=== PATIENT | female | born 1955 | race Caucasian/White ===

== ENCOUNTER 2018-11-21 10:37 | Inpatient (IN) ==
[2018-11-21] MEDS ORDERED: ONDANSETRON 4 MG/2 ML VIAL IV PRN (10:55)
[2018-11-21] MEDS ORDERED: DEXTROSE 50% 25 GM/50 ML SYRINGE IV PRN (10:55)
[2018-11-21] MEDS ORDERED: GLUCAGON 1 MG VIAL IM PRN (10:55)
[2018-11-21] MEDS ORDERED: SODIUM CHLORIDE 0.9% 1,000 ML IV PRN ×2 (11:00→14:41)
[2018-11-21] MEDS ORDERED: PNEUMOCOCCAL VACCINE (13 VALENT) 0.5 ML SYRINGE IM ONE (14:14)
[2018-11-21 14:51] LABS: Sedimentation Rate-Westergren 100 MM/HR (0-30)
[2018-11-21] MEDS: INSULIN LISPRO 100 UNIT/ML SUBCUT SCH ×3 (15:47→20:29)
[2018-11-21 16:35] LABS: Hepatitis A Ab IgM Quant 0.13 Index; Hepatitis A Ab IgM Result Negative (Negative); Hepatitis B Core IgM Quant 0.11 Index; Hepatitis B Core IgM Result Negative (Negative); Hepatitis B Surface Ag Quant < 0.10 Index; Hepatitis B Surface Ag Result Negative (Negative); Hepatitis C Virus Ab Quant 0.04 Index; Hepatitis C Virus Ab Result Negative (Negative)
[2018-11-21] MEDS ORDERED: IRON SUCROSE 200 MG in SODIUM CHLORIDE 0.9% 100 ML IV ONE (18:00)
[2018-11-21] MEDS: DOCUSATE SODIUM 100 MG CAPSULE PO SCH (20:29)
[2018-11-22] MEDS: ACETAMINOPHEN 325 MG TABLET PO PRN ×2 (00:50→10:53)
[2018-11-22 06:33] LABS: Basophils % 0.4 % (0.0-0.8); Eosinophils # 0.1 10*3/uL (0.0-0.87); Eosinophils % 3.5 % (0.00-10.9); Hematocrit 22.9 VOL% (35.7-47.0); Hemoglobin 6.9 GM/DL (12.0-16.0); Immature Granulocytes % 0.4 %; Immature Granulocytes Absolute 0.01 #; Lymphocytes % 42.1 % (21.3-54.2); Mean Corpuscular HGB Conc 30.1 GM/DL (32-36); Mean Corpuscular Hemoglobin 25 PG (27-34); Mean Corpuscular Volume 83.6 FL (87-102); Mean Platelet Volume 13.2 FL (9.6-12.0); Monocytes # 0.2 10*3/uL (0.11-0.8); Monocytes % 9.6 % (1.7-12.7); Red Blood Count 2.74 MC/CUMM (3.8-5.5); Red Cell Distribution Width 15.3 % (9.3-17.3); White Blood Count 2.3 T/CUMM (4-12)
[2018-11-22 06:36] LABS: INR 1.1; PT Patient Result 12.1 SECS
[2018-11-22 06:39] LABS: Platelet Count 38 T/CUMM (130-400)
[2018-11-22 07:01] LABS: Eosinophils 2 % (0-10); Hypochromasia 1+; Lymphocytes 39 % (20-55); Platelet Estimate Decreased; Segmented Neutrophils 47 % (50-85); Total Cells Counted 100
[2018-11-22 07:02] LABS: Albumin 2.8 G/DL (3.4-5.0); Bilirubin,Total 0.6 MG/DL (0.2-1.0); Calcium 9.7 MG/DL (8.5-10.1); Ovalocytes Slight; Potassium 4.2 MMOL/L (3.5-5.1); Total Protein 6.7 G/DL (6.4-8.3)
[2018-11-22] MEDS ORDERED: SODIUM CHLORIDE 0.9% 1,000 ML IV PRN (07:48)
[2018-11-22 08:16] LABS: Basophils % 0.4 % (0.0-0.8); Eosinophils # 0.1 10*3/uL (0.0-0.87); Eosinophils % 2.9 % (0.00-10.9); Hematocrit 26.1 VOL% (35.7-47.0); Hemoglobin 7.8 GM/DL (12.0-16.0); Immature Granulocytes % 0.4 %; Immature Granulocytes Absolute 0.01 #; Lymphocytes % 41.6 % (21.3-54.2); Mean Corpuscular HGB Conc 29.9 GM/DL (32-36); Mean Corpuscular Hemoglobin 25 PG (27-34); Mean Corpuscular Volume 84.5 FL (87-102); Mean Platelet Volume 12.5 FL (9.6-12.0); Monocytes # 0.2 10*3/uL (0.11-0.8); Monocytes % 7.6 % (1.7-12.7); Neutrophils # 1.1 10*3/uL (1.4-7.4); Neutrophils % 47.1 % (38.7-73.9); Red Blood Count 3.09 MC/CUMM (3.8-5.5); Red Cell Distribution Width 15.1 % (9.3-17.3); White Blood Count 2.4 T/CUMM (4-12)
[2018-11-22 08:20] LABS: Platelet Count 39 T/CUMM (130-400)
[2018-11-22 08:32] LABS: Hypochromasia 1+; Ovalocytes Slight; Platelet Estimate Decreased
[2018-11-22] MEDS: PANTOPRAZOLE 40 MG TABLET PO SCH (08:39)
[2018-11-22] MEDS: DOCUSATE SODIUM 100 MG CAPSULE PO SCH ×2 (08:40→22:16)
[2018-11-22] MEDS: INSULIN LISPRO 100 UNIT/ML SUBCUT SCH ×4 (08:42→22:25)
[2018-11-22] MEDS ORDERED: ETOMIDATE 20 MG/10 ML VIAL IV ONE (09:00)
[2018-11-22] MEDS ORDERED: ONDANSETRON 4 MG/2 ML VIAL ONE (09:00)
[2018-11-22] MEDS ORDERED: PROPOFOL 200 MG/20 ML VIAL IV ONE (09:00)
[2018-11-22] MEDS ORDERED: LIDOCAINE 100 MG/5 ML SYRINGE ONE (09:00)
[2018-11-22] MEDS ORDERED: LACTATED RINGERS 500 ML IV ONE (14:29)
[2018-11-22 20:50] LABS: Hematocrit 28.7 VOL% (35.7-47.0); Hemoglobin 8.8 GM/DL (12.0-16.0); Platelet Count 46 T/CUMM (130-400)
[2018-11-22] MEDS: DULoxetine 30 MG CAPSULE PO SCH (22:16)
[2018-11-23] MEDS: INSULIN LISPRO 100 UNIT/ML SUBCUT SCH ×4 (09:11→20:59)
[2018-11-23] MEDS: TORSEMIDE 20 MG TABLET PO SCH (09:59)
[2018-11-23] MEDS: PANTOPRAZOLE 40 MG TABLET PO SCH (09:59)
[2018-11-23] MEDS: LISINOPRIL 10 MG TABLET PO SCH (09:59)
[2018-11-23] MEDS: DOCUSATE SODIUM 100 MG CAPSULE PO SCH ×2 (09:59→20:59)
[2018-11-23] MEDS: buPROPion 100 MG TABLET PO SCH (10:00)
[2018-11-23] MEDS: DILTIAZEM CD 180 MG CAPSULE PO SCH (10:01)
[2018-11-23] MEDS: DULoxetine 30 MG CAPSULE PO SCH (20:59)
[2018-11-24 05:10] LABS: Basophils % 0.4 % (0.0-0.8); Eosinophils # 0.1 10*3/uL (0.0-0.87); Eosinophils % 3.4 % (0.00-10.9); Hematocrit 28.4 VOL% (35.7-47.0); Hemoglobin 8.7 GM/DL (12.0-16.0); Immature Granulocytes % 0.8 %; Immature Granulocytes Absolute 0.02 #; Lymphocytes % 36.5 % (21.3-54.2); Mean Corpuscular HGB Conc 30.6 GM/DL (32-36); Mean Corpuscular Hemoglobin 26 PG (27-34); Mean Corpuscular Volume 84.3 FL (87-102); Mean Platelet Volume 11.8 FL (9.6-12.0); Monocytes # 0.3 10*3/uL (0.11-0.8); Monocytes % 9.8 % (1.7-12.7); Neutrophils # 1.3 10*3/uL (1.4-7.4); Neutrophils % 49.1 % (38.7-73.9); Platelet Count 41 T/CUMM (130-400); Red Blood Count 3.37 MC/CUMM (3.8-5.5); Red Cell Distribution Width 15.5 % (9.3-17.3); White Blood Count 2.7 T/CUMM (4-12)
[2018-11-24 06:23] LABS: Anisocytosis 1+; Microcytosis Slight; Platelet Estimate Decreased
[2018-11-24] MEDS: INSULIN LISPRO 100 UNIT/ML SUBCUT SCH ×4 (09:37→22:21)
[2018-11-24] MEDS: DILTIAZEM CD 180 MG CAPSULE PO SCH (09:41)
[2018-11-24] MEDS: TORSEMIDE 20 MG TABLET PO SCH (09:41)
[2018-11-24] MEDS: PANTOPRAZOLE 40 MG TABLET PO SCH (09:41)
[2018-11-24] MEDS: DOCUSATE SODIUM 100 MG CAPSULE PO SCH ×2 (09:41→20:40)
[2018-11-24] MEDS: buPROPion 100 MG TABLET PO SCH (09:41)
[2018-11-24] MEDS: LISINOPRIL 10 MG TABLET PO SCH (09:41)
[2018-11-24] MEDS ORDERED: POLYETHYLENE GLYCOL POWDER 255 GM BOTTLE PO ONE (18:00)
[2018-11-24] MEDS: DULoxetine 30 MG CAPSULE PO SCH (20:40)
[2018-11-25] MEDS ORDERED: MAGNESIUM CITRATE 300 ML BOTTLE PO ONE (06:00)
[2018-11-25] MEDS ORDERED: POLYETHYLENE GLYCOL POWDER 255 GM BOTTLE PO ONE (08:53)
[2018-11-25] MEDS: TORSEMIDE 20 MG TABLET PO SCH (09:00)
[2018-11-25] MEDS: buPROPion 100 MG TABLET PO SCH (09:00)
[2018-11-25] MEDS: INSULIN LISPRO 100 UNIT/ML SUBCUT SCH ×4 (09:00→20:49)
[2018-11-25] MEDS: PANTOPRAZOLE 40 MG TABLET PO SCH (09:01)
[2018-11-25] MEDS: DILTIAZEM CD 180 MG CAPSULE PO SCH (09:01)
[2018-11-25] MEDS: DOCUSATE SODIUM 100 MG CAPSULE PO SCH ×2 (09:01→20:11)
[2018-11-25] MEDS: LISINOPRIL 10 MG TABLET PO SCH (09:01)
[2018-11-25 09:50] LABS: Basophils % 0.8 % (0.0-0.8); Eosinophils # 0.2 10*3/uL (0.0-0.87); Eosinophils % 4.1 % (0.00-10.9); Hematocrit 31.4 VOL% (35.7-47.0); Hemoglobin 9.6 GM/DL (12.0-16.0); Immature Granulocytes % 0.5 %; Immature Granulocytes Absolute 0.02 #; Lymphocytes % 27.6 % (21.3-54.2); Mean Corpuscular HGB Conc 30.6 GM/DL (32-36); Mean Corpuscular Hemoglobin 26 PG (27-34); Mean Corpuscular Volume 84.4 FL (87-102); Mean Platelet Volume 11.3 FL (9.6-12.0); Monocytes # 0.4 10*3/uL (0.11-0.8); Monocytes % 10.1 % (1.7-12.7); Neutrophils # 2.1 10*3/uL (1.4-7.4); Neutrophils % 56.9 % (38.7-73.9); Red Blood Count 3.72 MC/CUMM (3.8-5.5); Red Cell Distribution Width 15.7 % (9.3-17.3); White Blood Count 3.7 T/CUMM (4-12)
[2018-11-25 10:03] LABS: Platelet Count 43 T/CUMM (130-400)
[2018-11-25 10:06] LABS: Calcium 10.7 MG/DL (8.5-10.1); Hypochromasia 1+; Microcytosis Slight; Osmolality,Calculated 282.7 MOS/KG (273-304); Ovalocytes Slight; Platelet Estimate Decreased; Potassium 4.3 MMOL/L (3.5-5.1)
[2018-11-25] MEDS: DULoxetine 30 MG CAPSULE PO SCH (20:10)
[2018-11-25] MEDS: ACETAMINOPHEN 325 MG TABLET PO PRN (23:35)
[2018-11-26 04:35] LABS: Basophils % 0.4 % (0.0-0.8); Eosinophils # 0.1 10*3/uL (0.0-0.87); Eosinophils % 2.9 % (0.00-10.9); Hematocrit 29.7 VOL% (35.7-47.0); Hemoglobin 9.3 GM/DL (12.0-16.0); Immature Granulocytes % 0.4 %; Immature Granulocytes Absolute 0.01 #; Lymphocytes # 1.2 10*3/uL (1.4-4.0); Lymphocytes % 41.7 % (21.3-54.2); Mean Corpuscular HGB Conc 31.3 GM/DL (32-36); Mean Corpuscular Hemoglobin 26 PG (27-34); Mean Corpuscular Volume 82.5 FL (87-102); Mean Platelet Volume 12.6 FL (9.6-12.0); Monocytes # 0.3 10*3/uL (0.11-0.8); Monocytes % 9.1 % (1.7-12.7); Neutrophils # 1.3 10*3/uL (1.4-7.4); Neutrophils % 45.5 % (38.7-73.9); Platelet Count 45 T/CUMM (130-400); Red Cell Distribution Width 15.7 % (9.3-17.3); White Blood Count 2.8 T/CUMM (4-12)
[2018-11-26 04:55] LABS: Hypochromasia 1+; Microcytosis Slight; Ovalocytes Slight; Platelet Estimate Decreased
[2018-11-26 05:02] LABS: Calcium 10.1 MG/DL (8.5-10.1); Osmolality,Calculated 285.4 MOS/KG (273-304); Potassium 3.8 MMOL/L (3.5-5.1)
[2018-11-26] MEDS ORDERED: PROPOFOL 200 MG/20 ML VIAL IV ONE (09:00)
[2018-11-26] MEDS ORDERED: LIDOCAINE 2% 5 ML VIAL ONE (09:00)
[2018-11-26] MEDS: INSULIN LISPRO 100 UNIT/ML SUBCUT SCH ×4 (09:02→21:23)
[2018-11-26] MEDS: DOCUSATE SODIUM 100 MG CAPSULE PO SCH ×2 (14:44→20:02)
[2018-11-26] MEDS: TORSEMIDE 20 MG TABLET PO SCH (15:25)
[2018-11-26] MEDS: PANTOPRAZOLE 40 MG TABLET PO SCH (15:25)
[2018-11-26] MEDS: buPROPion 100 MG TABLET PO SCH (15:25)
[2018-11-26] MEDS: LISINOPRIL 10 MG TABLET PO SCH (15:25)
[2018-11-26] MEDS: DILTIAZEM CD 180 MG CAPSULE PO SCH (15:25)
[2018-11-26] MEDS: DULoxetine 30 MG CAPSULE PO SCH (20:02)
[2018-11-27 04:55] LABS: Basophils % 0.7 % (0.0-0.8); Eosinophils # 0.1 10*3/uL (0.0-0.87); Hematocrit 31.8 VOL% (35.7-47.0); Hemoglobin 9.7 GM/DL (12.0-16.0); Immature Granulocytes % 0.2 %; Immature Granulocytes Absolute 0.01 #; Lymphocytes # 1.1 10*3/uL (1.4-4.0); Lymphocytes % 27.4 % (21.3-54.2); Mean Corpuscular HGB Conc 30.5 GM/DL (32-36); Mean Corpuscular Hemoglobin 26 PG (27-34); Mean Corpuscular Volume 84.6 FL (87-102); Monocytes # 0.3 10*3/uL (0.11-0.8); Monocytes % 7.6 % (1.7-12.7); Neutrophils # 2.5 10*3/uL (1.4-7.4); Neutrophils % 62.1 % (38.7-73.9); Platelet Count 49 T/CUMM (130-400); Red Blood Count 3.76 MC/CUMM (3.8-5.5); Red Cell Distribution Width 15.9 % (9.3-17.3); White Blood Count 4.1 T/CUMM (4-12)
[2018-11-27 05:13] LABS: Calcium 10.4 MG/DL (8.5-10.1); Osmolality,Calculated 286.4 MOS/KG (273-304); Potassium 4.1 MMOL/L (3.5-5.1)
[2018-11-27 05:17] LABS: Hypochromasia 2+; Microcytosis Slight; Ovalocytes Slight; Platelet Estimate Decreased
[2018-11-27] MEDS: INSULIN LISPRO 100 UNIT/ML SUBCUT SCH ×4 (11:13→21:33)
[2018-11-27] MEDS: DOCUSATE SODIUM 100 MG CAPSULE PO SCH ×2 (11:13→21:00)
[2018-11-27] MEDS: buPROPion 100 MG TABLET PO SCH (11:25)
[2018-11-27] MEDS: LISINOPRIL 10 MG TABLET PO SCH (11:25)
[2018-11-27] MEDS: DILTIAZEM CD 180 MG CAPSULE PO SCH (11:26)
[2018-11-27] MEDS: PANTOPRAZOLE 40 MG TABLET PO SCH (11:26)
[2018-11-27] MEDS: TORSEMIDE 20 MG TABLET PO SCH (11:26)
[2018-11-27] MEDS ORDERED: IRON SUCROSE 200 MG in SODIUM CHLORIDE 0.9% 100 ML IV ONE (13:00)
[2018-11-27] MEDS ORDERED: GLUCAGON 1 MG VIAL IM PRN (15:53)
[2018-11-27] MEDS ORDERED: DEXTROSE 50% 25 GM/50 ML VIAL IV PRN (15:53)
[2018-11-27] MEDS: DULoxetine 30 MG CAPSULE PO SCH (20:59)
[2018-11-28 05:21] LABS: Calcium 9.6 MG/DL (8.5-10.1); Osmolality,Calculated 283.7 MOS/KG (273-304); Potassium 3.9 MMOL/L (3.5-5.1)
[2018-11-28 05:28] LABS: Basophils % 0.6 % (0.0-0.8); Eosinophils # 0.1 10*3/uL (0.0-0.87); Eosinophils % 2.9 % (0.00-10.9); Hematocrit 30.4 VOL% (35.7-47.0); Hemoglobin 9.5 GM/DL (12.0-16.0); Immature Granulocytes % 0.3 %; Immature Granulocytes Absolute 0.01 #; Lymphocytes # 1.2 10*3/uL (1.4-4.0); Lymphocytes % 36.3 % (21.3-54.2); Mean Corpuscular HGB Conc 31.3 GM/DL (32-36); Mean Corpuscular Hemoglobin 26 PG (27-34); Mean Corpuscular Volume 83.3 FL (87-102); Monocytes # 0.3 10*3/uL (0.11-0.8); Monocytes % 7.4 % (1.7-12.7); Neutrophils # 1.8 10*3/uL (1.4-7.4); Neutrophils % 52.5 % (38.7-73.9); Platelet Count 41 T/CUMM (130-400); Red Blood Count 3.65 MC/CUMM (3.8-5.5); Red Cell Distribution Width 16.1 % (9.3-17.3); White Blood Count 3.4 T/CUMM (4-12)
[2018-11-28 06:48] LABS: Eosinophils 2 % (0-10); Lymphocytes 30 % (20-55); Segmented Neutrophils 62 % (50-85); Total Cells Counted 100
[2018-11-28 06:49] LABS: Anisocytosis Slight; Microcytosis Slight
[2018-11-28 06:50] LABS: Hypochromasia Slight
[2018-11-28 06:51] LABS: Ovalocytes Slight; Platelet Estimate Decreased
[2018-11-28] MEDS ORDERED: SODIUM CHLORIDE 0.9% 1,000 ML IV SCH (08:00)
[2018-11-28] MEDS: INSULIN LISPRO 100 UNIT/ML SUBCUT SCH ×2 (08:03→12:49)
[2018-11-28] MEDS: PANTOPRAZOLE 40 MG TABLET PO SCH (09:00)
[2018-11-28] MEDS: DILTIAZEM CD 180 MG CAPSULE PO SCH (09:00)
[2018-11-28] MEDS: buPROPion 100 MG TABLET PO SCH (09:00)
[2018-11-28] MEDS: DOCUSATE SODIUM 100 MG CAPSULE PO SCH (09:00)
[2018-11-28 11:35] VITALS: BP 121/58
== END 2018-11-28 14:15 | disposition home or self-care (01) | DRG 812 ==
LOC: N.4E 11:04
PROVIDERS: ADMIT Internal Medicine; ATTEND Internal Medicine

== ENCOUNTER 2021-02-25 11:19 | Inpatient (IN) ==
[2021-02-25] MEDS ORDERED: SODIUM CHLORIDE 0.9% 1,000 ML IV STA (11:37)
[2021-02-25 12:32] LABS: Bilirubin,Urine Negative (Negative); Blood, Urine Negative (Negative); Glucose,Urine (UA) Negative (Negative); Ketones,Urine Negative (Negative); Mucus,Urine Occasional /LPF (Occasional); Nitrite,Urine Negative (Negative); Protein,Urine Negative; RBC,Urine 1 /HPF (0-4); Squamous Epithelial Cell,Urine Occasional /HPF (0-10); Urine Appearance CLEAR (Clear); Urine Color Yellow (Yellow); Urine Specific Gravity 1.008 (1.001-1.035); Urine Urobilinogen < 2.0 EU/DL (0.2-1.0)
[2021-02-25 12:40] LABS: Eosinophils % 0.3 % (0.00-10.9); Immature Granulocytes % 0.7 %; Immature Granulocytes Absolute 0.02 #; Lymphocytes # 0.5 10*3/uL (1.4-4.0); Mean Corpuscular HGB Conc 31.1 GM/DL (32-36); Mean Corpuscular Volume 90.2 FL (87-102); Red Blood Count 1.32 MC/CUMM (3.8-5.5); Red Cell Distribution Width 18.1 % (9.3-17.3)
[2021-02-25 12:46] LABS: Hemoglobin 3.7 GM/DL (12.0-16.0)
[2021-02-25 12:47] LABS: Hematocrit 11.9 VOL% (35.7-47.0); Platelet Count 7 T/CUMM (130-400)
[2021-02-25] MEDS ORDERED: ALBUTEROL 2.5 MG/3 ML NEB RESP TX PRN (13:05)
[2021-02-25] MEDS ORDERED: ONDANSETRON 4 MG/2 ML VIAL IV PRN (13:05)
[2021-02-25 13:08] LABS: Alanine Aminotransferase 24 U/L (13-56); Albumin 2.3 G/DL (3.4-5.0); Alkaline Phosphatase 63 U/L (45-117); Aspartate Amino Transferase 27 U/L (0-37); Blood Urea Nitrogen 54 MG/DL (7-18); Calcium 9.2 MG/DL (8.5-10.1); Carbon Dioxide 19 MMOL/L (21-32); Estimated Glom Filtration Rate 43 ML/MIN; Glucose 145 MG/DL (74-106); Osmolality,Calculated 298.3 MOS/KG (273-304); Potassium 4.6 MMOL/L (3.5-5.1); Sodium 141 MMOL/L (136-145); Total Protein 5.9 G/DL (6.4-8.2)
[2021-02-25 13:36] LABS: Hypochromasia 2+; Lymphocytes 11 % (20-55); Platelet Estimate Decreased; Segmented Neutrophils 83 % (50-85); Total Cells Counted 100
[2021-02-25 13:37] LABS: Ovalocytes Few
[2021-02-25 13:39] LABS: INR 1.2; PT Patient Result 13.4 SECS (10.5-12.0)
[2021-02-25] MEDS ORDERED: SODIUM CHLORIDE 0.9% 1,000 ML IV PRN (13:44)
[2021-02-25] MEDS: LACTATED RINGERS 1,000 ML IV SCH (13:52)
[2021-02-25] MEDS: FAMOTIDINE 20 MG/2 ML VIAL IV SCH (13:52)
[2021-02-25 14:45] LABS: Ferritin 162.7 ng/ml (8-252)
[2021-02-25 15:19] LABS: Immature Granulocytes % 0.6 %; Immature Granulocytes Absolute 0.01 #; Lymphocytes # 0.5 10*3/uL (1.4-4.0); Lymphocytes % 27.5 % (21.3-54.2); Mean Corpuscular HGB Conc 30.6 GM/DL (32-36); Mean Corpuscular Volume 91.5 FL (87-102); Mean Platelet Volume 11.9 FL (9.6-12.0); Neutrophils % 62.9 % (38.7-73.9); Red Blood Count 1.18 MC/CUMM (3.8-5.5); Red Cell Distribution Width 18.4 % (9.3-17.3); White Blood Count 1.7 T/CUMM (4-12)
[2021-02-25 15:25] LABS: Hematocrit 10.8 VOL% (35.7-47.0); Hemoglobin 3.3 GM/DL (12.0-16.0)
[2021-02-25 15:26] LABS: Platelet Count 5 T/CUMM (130-400)
[2021-02-25 17:46] LABS: Sedimentation Rate-Westergren 80 MM/HR (0-30)
[2021-02-25] MEDS ORDERED: cefTRIAXone 1,000 MG in SODIUM CHLORIDE 0.9% 100 ML IV SCH (19:00)
[2021-02-25 20:57] LABS: Folate 6.68 NG/ML (5.38-24.0)
[2021-02-25] MEDS: CALCIUM (CARBONATE)/VITAMIN D 600 MG-400 UNIT TABLET PO SCH (21:29)
[2021-02-25] MEDS: LATANOPROST 0.005% OPH SOLN 2.5 ML BOTTLE BOTH EYES SCH (21:32)
[2021-02-26 01:20] LABS: Hematocrit 21.4 VOL% (35.7-47.0); Hemoglobin 6.9 GM/DL (12.0-16.0)
[2021-02-26] MEDS: FAMOTIDINE 20 MG/2 ML VIAL IV SCH ×2 (02:26→13:03)
[2021-02-26 04:41] LABS: Eosinophils % 1.1 % (0.00-10.9); Hematocrit 21.6 VOL% (35.7-47.0); Hemoglobin 7.1 GM/DL (12.0-16.0); Immature Granulocytes % 0.7 %; Immature Granulocytes Absolute 0.02 #; Lymphocytes # 0.4 10*3/uL (1.4-4.0); Lymphocytes % 15.9 % (21.3-54.2); Mean Corpuscular HGB Conc 32.9 GM/DL (32-36); Mean Corpuscular Volume 90.8 FL (87-102); Monocytes % 8.1 % (1.7-12.7); Neutrophils % 74.2 % (38.7-73.9); Red Blood Count 2.38 MC/CUMM (3.8-5.5); Red Cell Distribution Width 16.2 % (9.3-17.3); White Blood Count 2.7 T/CUMM (4-12)
[2021-02-26 04:45] LABS: Platelet Count 2 T/CUMM (130-400)
[2021-02-26 04:54] LABS: Albumin 2.4 G/DL (3.4-5.0); Bilirubin,Total 1.3 MG/DL (0.2-1.0); Calcium 9.3 MG/DL (8.5-10.1); Osmolality,Calculated 297.1 MOS/KG (273-304); Potassium 4.1 MMOL/L (3.5-5.1); Total Protein 5.8 G/DL (6.4-8.2)
[2021-02-26 04:57] LABS: INR 1.3
[2021-02-26 06:24] LABS: Anisocytosis 2+; Platelet Estimate Decreased
[2021-02-26 06:25] LABS: Macrocytosis 1+
[2021-02-26] MEDS: LACTATED RINGERS 1,000 ML IV SCH ×4 (06:31→21:13)
[2021-02-26] MEDS: oxyCODONE IR 5 MG TABLET PO SCH (08:44)
[2021-02-26] MEDS: buPROPion 100 MG TABLET PO SCH (08:44)
[2021-02-26] MEDS: CALCIUM (CARBONATE)/VITAMIN D 600 MG-400 UNIT TABLET PO SCH ×2 (08:44→21:14)
[2021-02-26 10:18] LABS: Band Neutrophils 10 % (0-10); Lymphocytes 24 % (20-55); Platelet Estimate Decreased; Segmented Neutrophils 58 % (50-85); Total Cells Counted 100
[2021-02-26 10:19] LABS: Anisocytosis 1+; Hypochromasia 1+
[2021-02-26 10:39] LABS: INR 1.2; PT Patient Result 12.8 SECS (10.5-12.0); Partial Thromboplastin Time 28.7 SECS (23.9-33.8)
[2021-02-26] MEDS ORDERED: IMMUNE GLOBULIN 10% 40 GM in PREMIX 1 EACH IV ONE (11:28)
[2021-02-26] MEDS: methylPREDNISolone SOD SUC INJ 500 MG in SODIUM CHLORIDE 0.9% 100 ML IV SCH (13:03)
[2021-02-26] MEDS: LATANOPROST 0.005% OPH SOLN 2.5 ML BOTTLE BOTH EYES SCH (21:14)
[2021-02-27] MEDS: FAMOTIDINE 20 MG/2 ML VIAL IV SCH ×2 (01:38→13:09)
[2021-02-27 06:22] LABS: Hematocrit 19.5 VOL% (35.7-47.0); Hemoglobin 6.5 GM/DL (12.0-16.0); Immature Granulocytes Absolute 0.02 #; Lymphocytes # 0.2 10*3/uL (1.4-4.0); Lymphocytes % 16.2 % (21.3-54.2); Mean Corpuscular HGB Conc 33.3 GM/DL (32-36); Mean Corpuscular Volume 89.4 FL (87-102); Mean Platelet Volume 12.4 FL (9.6-12.0); Neutrophils % 78.8 % (38.7-73.9); Red Blood Count 2.18 MC/CUMM (3.8-5.5); Red Cell Distribution Width 16.3 % (9.3-17.3)
[2021-02-27 06:23] LABS: Platelet Count 13 T/CUMM (130-400)
[2021-02-27 06:32] LABS: INR 1.2; PT Patient Result 13.6 SECS (10.5-12.0); Partial Thromboplastin Time 30.1 SECS (23.9-33.8)
[2021-02-27 06:39] LABS: Albumin 2.1 G/DL (3.4-5.0); Bilirubin,Total 0.8 MG/DL (0.2-1.0); Calcium 9.3 MG/DL (8.5-10.1); Osmolality,Calculated 292.4 MOS/KG (273-304); Potassium 4.1 MMOL/L (3.5-5.1); Total Protein 6.2 G/DL (6.4-8.2)
[2021-02-27 06:42] LABS: Band Neutrophils 1 % (0-10); Hypochromasia 1+; Lymphocytes 15 % (20-55); Microcytosis 1+; Platelet Estimate Decreased; Segmented Neutrophils 80 % (50-85); Total Cells Counted 100
[2021-02-27] MEDS: LACTATED RINGERS 1,000 ML IV SCH ×2 (06:45→16:14)
[2021-02-27] MEDS: CALCIUM (CARBONATE)/VITAMIN D 600 MG-400 UNIT TABLET PO SCH ×2 (08:00→20:56)
[2021-02-27] MEDS: buPROPion 100 MG TABLET PO SCH (08:00)
[2021-02-27] MEDS: oxyCODONE IR 5 MG TABLET PO SCH (08:01)
[2021-02-27] MEDS ORDERED: PNEUMOCOCCAL VACCINE (13 VALENT) 0.5 ML SYRINGE IM ONE (09:00)
[2021-02-27] MEDS ORDERED: IMMUNE GLOBULIN 10% 40 GM in PREMIX 1 EACH IV ONE (09:12)
[2021-02-27] MEDS: methylPREDNISolone SOD SUC INJ 500 MG in SODIUM CHLORIDE 0.9% 100 ML IV SCH (13:09)
[2021-02-27 16:16] LABS: Hematocrit 25.6 VOL% (35.7-47.0); Immature Granulocytes % 1.1 %; Immature Granulocytes Absolute 0.02 #; Lymphocytes # 0.2 10*3/uL (1.4-4.0); Lymphocytes % 9.1 % (21.3-54.2); Mean Corpuscular Volume 90.5 FL (87-102); Mean Platelet Volume 12.2 FL (9.6-12.0); Neutrophils % 85.8 % (38.7-73.9); Red Blood Count 2.83 MC/CUMM (3.8-5.5); Red Cell Distribution Width 15.7 % (9.3-17.3); White Blood Count 1.8 T/CUMM (4-12)
[2021-02-27 16:25] LABS: Hemoglobin 8.2 GM/DL (12.0-16.0)
[2021-02-27 16:26] LABS: Platelet Count 21 T/CUMM (130-400)
[2021-02-27 16:44] LABS: Lymphocytes 7 % (20-55); Segmented Neutrophils 93 % (50-85); Total Cells Counted 100
[2021-02-27 16:46] LABS: Anisocytosis Slight; Macrocytosis Slight
[2021-02-27 16:47] LABS: Platelet Estimate Adequate
[2021-02-27] MEDS: LATANOPROST 0.005% OPH SOLN 2.5 ML BOTTLE BOTH EYES SCH (20:56)
[2021-02-28] MEDS: LACTATED RINGERS 1,000 ML IV SCH ×3 (01:25→23:33)
[2021-02-28] MEDS: FAMOTIDINE 20 MG/2 ML VIAL IV SCH (01:25)
[2021-02-28 05:01] LABS: Hematocrit 24.9 VOL% (35.7-47.0); Hemoglobin 8.3 GM/DL (12.0-16.0); Immature Granulocytes Absolute 0.02 #; Lymphocytes # 0.2 10*3/uL (1.4-4.0); Lymphocytes % 8.1 % (21.3-54.2); Mean Corpuscular HGB Conc 33.3 GM/DL (32-36); Mean Corpuscular Volume 89.2 FL (87-102); Mean Platelet Volume 12.4 FL (9.6-12.0); Monocytes % 3.6 % (1.7-12.7); Neutrophils % 87.3 % (38.7-73.9); Red Blood Count 2.79 MC/CUMM (3.8-5.5); Red Cell Distribution Width 15.6 % (9.3-17.3)
[2021-02-28 05:12] LABS: Platelet Count 23 T/CUMM (130-400)
[2021-02-28 05:35] LABS: Hypochromasia 1+; Lymphocytes 4 % (20-55); Microcytosis 1+; Platelet Estimate Decreased; Segmented Neutrophils 94 % (50-85); Total Cells Counted 100
[2021-02-28 05:36] LABS: Albumin 2.4 G/DL (3.4-5.0); Bilirubin,Total 0.8 MG/DL (0.2-1.0); Calcium 10.4 MG/DL (8.5-10.1); Osmolality,Calculated 294.4 MOS/KG (273-304); Potassium 3.8 MMOL/L (3.5-5.1); Total Protein 7.5 G/DL (6.4-8.2)
[2021-02-28] MEDS ORDERED: LACTULOSE 20 GM/30 ML UDCUP PO SCH (09:00)
[2021-02-28] MEDS: CALCIUM (CARBONATE)/VITAMIN D 600 MG-400 UNIT TABLET PO SCH ×2 (09:22→22:05)
[2021-02-28] MEDS: PANTOPRAZOLE 40 MG VIAL IV SCH ×2 (09:22→22:02)
[2021-02-28] MEDS: LACTULOSE 20 GM/30 ML UDCUP PO SCH ×2 (09:22→22:05)
[2021-02-28] MEDS: buPROPion 100 MG TABLET PO SCH (09:22)
[2021-02-28] MEDS: oxyCODONE IR 5 MG TABLET PO SCH (09:22)
[2021-02-28] MEDS: methylPREDNISolone SOD SUC INJ 500 MG in SODIUM CHLORIDE 0.9% 100 ML IV SCH (13:50)
[2021-02-28] MEDS ORDERED: DEXTROSE 50% 25 GM/50 ML VIAL IV PRN (17:58)
[2021-02-28] MEDS ORDERED: GLUCAGON 1 MG VIAL IM PRN (17:58)
[2021-02-28] MEDS ORDERED: SODIUM CHLORIDE 0.9% 1,000 ML IV PRN ×2 (17:59→23:19)
[2021-02-28] MEDS ORDERED: IMMUNE GLOBULIN 10% 40 GM in PREMIX 1 EACH IV ONE (18:01)
[2021-02-28] MEDS: INSULIN LISPRO 100 UNIT/ML SUBCUT SCH (18:29)
[2021-02-28] MEDS: LATANOPROST 0.005% OPH SOLN 2.5 ML BOTTLE BOTH EYES SCH (22:35)
[2021-02-28 23:16] LABS: Basophils % 0.3 % (0.0-0.8); Hematocrit 24.4 VOL% (35.7-47.0); Hemoglobin 7.9 GM/DL (12.0-16.0); Immature Granulocytes Absolute 0.09 #; Lymphocytes # 0.2 10*3/uL (1.4-4.0); Lymphocytes % 7.3 % (21.3-54.2); Mean Corpuscular HGB Conc 32.4 GM/DL (32-36); Mean Corpuscular Volume 90.7 FL (87-102); Mean Platelet Volume 12.1 FL (9.6-12.0); Monocytes % 3.7 % (1.7-12.7); Neutrophils % 85.7 % (38.7-73.9); Red Blood Count 2.69 MC/CUMM (3.8-5.5); Red Cell Distribution Width 16.2 % (9.3-17.3)
[2021-02-28 23:17] LABS: Platelet Count 37 T/CUMM (130-400)
[2021-03-01] MEDS: INSULIN LISPRO 100 UNIT/ML SUBCUT SCH ×4 (00:02→18:29)
[2021-03-01] MEDS: LACTATED RINGERS 1,000 ML IV SCH ×3 (01:33→17:51)
[2021-03-01 04:40] LABS: Hematocrit 22.6 VOL% (35.7-47.0); Hemoglobin 7.3 GM/DL (12.0-16.0); Immature Granulocytes % 1.8 %; Immature Granulocytes Absolute 0.05 #; Lymphocytes # 0.2 10*3/uL (1.4-4.0); Lymphocytes % 7.7 % (21.3-54.2); Mean Corpuscular HGB Conc 32.3 GM/DL (32-36); Mean Corpuscular Volume 91.1 FL (87-102); Mean Platelet Volume 11.8 FL (9.6-12.0); Monocytes % 4.4 % (1.7-12.7); NRBC # 0.02 10*3/uL; Neutrophils % 86.1 % (38.7-73.9); Platelet Count 43 T/CUMM (130-400); Red Blood Count 2.48 MC/CUMM (3.8-5.5); Red Cell Distribution Width 16.2 % (9.3-17.3); White Blood Count 2.7 T/CUMM (4-12)
[2021-03-01 05:01] LABS: Hypochromasia 1+; Microcytosis 1+; Ovalocytes Slight; Platelet Estimate Decreased
[2021-03-01 05:23] LABS: Calcium 11.2 MG/DL (8.5-10.1); Potassium 3.9 MMOL/L (3.5-5.1)
[2021-03-01] MEDS ORDERED: SODIUM CHLORIDE 0.9% 1,000 ML IV PRN (09:39)
[2021-03-01] MEDS: oxyCODONE IR 5 MG TABLET PO SCH (10:29)
[2021-03-01] MEDS: CALCIUM (CARBONATE)/VITAMIN D 600 MG-400 UNIT TABLET PO SCH ×2 (10:29→21:08)
[2021-03-01] MEDS: buPROPion 100 MG TABLET PO SCH (10:29)
[2021-03-01] MEDS: PANTOPRAZOLE 40 MG VIAL IV SCH ×2 (10:30→21:09)
[2021-03-01] MEDS: LACTULOSE 20 GM/30 ML UDCUP PO SCH ×2 (10:30→21:09)
[2021-03-01] MEDS: methylPREDNISolone SOD SUC INJ 500 MG in SODIUM CHLORIDE 0.9% 100 ML IV SCH (15:01)
[2021-03-01] MEDS ORDERED: FUROSEMIDE 40 MG/4 ML VIAL IV ONE (15:30)
[2021-03-01] MEDS: LATANOPROST 0.005% OPH SOLN 2.5 ML BOTTLE BOTH EYES SCH (21:22)
[2021-03-01 22:29] LABS: Hematocrit 26.3 VOL% (35.7-47.0); Hemoglobin 8.6 GM/DL (12.0-16.0); Immature Granulocytes % 4.9 %; Lymphocytes # 0.2 10*3/uL (1.4-4.0); Lymphocytes % 5.8 % (21.3-54.2); Mean Corpuscular HGB Conc 32.7 GM/DL (32-36); Mean Corpuscular Volume 90.1 FL (87-102); Mean Platelet Volume 11.7 FL (9.6-12.0); Monocytes % 4.4 % (1.7-12.7); NRBC # 0.03 10*3/uL; Neutrophils % 84.9 % (38.7-73.9); Platelet Count 55 T/CUMM (130-400); Red Blood Count 2.92 MC/CUMM (3.8-5.5); Red Cell Distribution Width 16.5 % (9.3-17.3); White Blood Count 4.1 T/CUMM (4-12)
[2021-03-01 23:32] LABS: Lymphocytes 5 % (20-55); Segmented Neutrophils 93 % (50-85); Total Cells Counted 100
[2021-03-01 23:33] LABS: Hypochromasia 1+; Platelet Estimate Decreased
[2021-03-02] MEDS: INSULIN LISPRO 100 UNIT/ML SUBCUT SCH ×5 (00:23→23:37)
[2021-03-02 04:27] LABS: Hematocrit 24.1 VOL% (35.7-47.0); Hemoglobin 7.8 GM/DL (12.0-16.0); Immature Granulocytes % 3.4 %; Lymphocytes # 0.2 10*3/uL (1.4-4.0); Lymphocytes % 8.2 % (21.3-54.2); Mean Corpuscular HGB Conc 32.4 GM/DL (32-36); Mean Corpuscular Volume 89.6 FL (87-102); Mean Platelet Volume 11.5 FL (9.6-12.0); Monocytes % 7.2 % (1.7-12.7); NRBC # 0.03 10*3/uL; Neutrophils % 81.2 % (38.7-73.9); Platelet Count 47 T/CUMM (130-400); Red Blood Count 2.69 MC/CUMM (3.8-5.5); Red Cell Distribution Width 16.5 % (9.3-17.3); White Blood Count 2.9 T/CUMM (4-12)
[2021-03-02 04:37] LABS: Calcium 11.1 MG/DL (8.5-10.1); Osmolality,Calculated 299.8 MOS/KG (273-304); Potassium 3.7 MMOL/L (3.5-5.1)
[2021-03-02 04:48] LABS: Hypochromasia 1+; Microcytosis 1+; Platelet Estimate Decreased
[2021-03-02] MEDS: LACTATED RINGERS 1,000 ML IV SCH ×2 (06:48→17:46)
[2021-03-02] MEDS: oxyCODONE IR 5 MG TABLET PO SCH (08:45)
[2021-03-02] MEDS: CALCIUM (CARBONATE)/VITAMIN D 600 MG-400 UNIT TABLET PO SCH ×2 (08:45→21:20)
[2021-03-02] MEDS: LACTULOSE 20 GM/30 ML UDCUP PO SCH ×2 (08:45→21:19)
[2021-03-02] MEDS: buPROPion 100 MG TABLET PO SCH (08:46)
[2021-03-02] MEDS: PANTOPRAZOLE 40 MG VIAL IV SCH ×2 (08:46→21:19)
[2021-03-02] MEDS ORDERED: SODIUM CHLORIDE 0.9% 1,000 ML IV PRN ×2 (09:16→11:59)
[2021-03-02] MEDS ORDERED: HEPARIN 5,000 UNIT/1 ML VIAL ONE (09:48)
[2021-03-02] MEDS: SODIUM CHLORIDE 0.9% 1,000 ML IV SCH (11:55)
[2021-03-02] MEDS: methylPREDNISolone SOD SUC 40 MG/1 ML VIAL IV SCH ×2 (12:02→17:54)
[2021-03-02] MEDS ORDERED: LIDOCAINE 2% 5 ML VIAL ONE (13:54)
[2021-03-02] MEDS ORDERED: propofoL 200 MG/20 ML VIAL IV ONE (13:54)
[2021-03-02] MEDS ORDERED: ETOMIDATE 20 MG/10 ML VIAL IV ONE (13:54)
[2021-03-02 20:53] LABS: Basophils % 0.3 % (0.0-0.8); Hematocrit 27.9 VOL% (35.7-47.0); Hemoglobin 9.1 GM/DL (12.0-16.0); Immature Granulocytes % 4.6 %; Immature Granulocytes Absolute 0.14 #; Lymphocytes # 0.2 10*3/uL (1.4-4.0); Lymphocytes % 6.2 % (21.3-54.2); Mean Corpuscular HGB Conc 32.6 GM/DL (32-36); Mean Corpuscular Volume 90.3 FL (87-102); Mean Platelet Volume 11.1 FL (9.6-12.0); Monocytes % 3.3 % (1.7-12.7); NRBC # 0.03 10*3/uL; Neutrophils % 85.6 % (38.7-73.9); Platelet Count 51 T/CUMM (130-400); Red Blood Count 3.09 MC/CUMM (3.8-5.5); Red Cell Distribution Width 16.5 % (9.3-17.3); White Blood Count 3.1 T/CUMM (4-12)
[2021-03-02] MEDS: LATANOPROST 0.005% OPH SOLN 2.5 ML BOTTLE BOTH EYES SCH (21:23)
[2021-03-02] MEDS ORDERED: LABETALOL 20 MG/4 ML SYRINGE IV ONE (23:20)
[2021-03-03] MEDS: methylPREDNISolone SOD SUC 40 MG/1 ML VIAL IV SCH ×3 (01:32→18:24)
[2021-03-03] MEDS: LACTATED RINGERS 1,000 ML IV SCH ×2 (04:07→14:45)
[2021-03-03 04:41] LABS: Hematocrit 27.9 VOL% (35.7-47.0); Hemoglobin 9.1 GM/DL (12.0-16.0); Immature Granulocytes % 5.4 %; Immature Granulocytes Absolute 0.15 #; Lymphocytes # 0.2 10*3/uL (1.4-4.0); Lymphocytes % 6.5 % (21.3-54.2); Mean Corpuscular HGB Conc 32.6 GM/DL (32-36); Mean Corpuscular Volume 90.9 FL (87-102); Mean Platelet Volume 11.5 FL (9.6-12.0); Monocytes % 2.9 % (1.7-12.7); NRBC # 0.03 10*3/uL; Neutrophils % 85.2 % (38.7-73.9); Platelet Count 51 T/CUMM (130-400); Red Blood Count 3.07 MC/CUMM (3.8-5.5); Red Cell Distribution Width 16.5 % (9.3-17.3); White Blood Count 2.8 T/CUMM (4-12)
[2021-03-03 05:00] LABS: Band Neutrophils 1 % (0-10); Lymphocytes 5 % (20-55); Platelet Estimate Decreased; Segmented Neutrophils 90 % (50-85); Total Cells Counted 100
[2021-03-03 05:01] LABS: Hypochromasia 1+; Microcytosis 1+
[2021-03-03 05:07] LABS: Calcium 11.7 MG/DL (8.5-10.1); Potassium 3.9 MMOL/L (3.5-5.1)
[2021-03-03] MEDS: INSULIN LISPRO 100 UNIT/ML SUBCUT SCH ×3 (05:39→18:24)
[2021-03-03] MEDS: PANTOPRAZOLE 40 MG VIAL IV SCH ×2 (08:58→21:52)
[2021-03-03] MEDS: LACTULOSE 20 GM/30 ML UDCUP PO SCH ×2 (08:58→21:53)
[2021-03-03] MEDS: SODIUM CHLORIDE 0.9% 1,000 ML IV SCH (09:39)
[2021-03-03] MEDS: CALCIUM (CARBONATE)/VITAMIN D 600 MG-400 UNIT TABLET PO SCH (09:53)
[2021-03-03] MEDS: LATANOPROST 0.005% OPH SOLN 2.5 ML BOTTLE BOTH EYES SCH (21:52)
[2021-03-04] MEDS: INSULIN LISPRO 100 UNIT/ML SUBCUT SCH ×4 (01:50→18:12)
[2021-03-04] MEDS: methylPREDNISolone SOD SUC 40 MG/1 ML VIAL IV SCH ×2 (01:51→09:55)
[2021-03-04 05:46] LABS: Hematocrit 27.3 VOL% (35.7-47.0); Hemoglobin 8.6 GM/DL (12.0-16.0); Immature Granulocytes % 4.4 %; Immature Granulocytes Absolute 0.11 #; Lymphocytes # 0.1 10*3/uL (1.4-4.0); Mean Corpuscular HGB Conc 31.5 GM/DL (32-36); Mean Corpuscular Volume 95.8 FL (87-102); Mean Platelet Volume 12.3 FL (9.6-12.0); Monocytes % 2.8 % (1.7-12.7); Neutrophils % 88.8 % (38.7-73.9); Platelet Count 41 T/CUMM (130-400); Red Blood Count 2.85 MC/CUMM (3.8-5.5); Red Cell Distribution Width 17.2 % (9.3-17.3); White Blood Count 2.5 T/CUMM (4-12)
[2021-03-04 06:14] LABS: Hypochromasia 1+; Lymphocytes 12 % (20-55); Platelet Estimate Decreased; Segmented Neutrophils 86 % (50-85); Total Cells Counted 100
[2021-03-04 06:49] LABS: Calcium 10.9 MG/DL (8.5-10.1); Osmolality,Calculated 299.8 MOS/KG (273-304)
[2021-03-04] MEDS: LACTATED RINGERS 1,000 ML IV SCH ×5 (08:06→19:34)
[2021-03-04] MEDS ORDERED: SODIUM CHLORIDE 0.9% 1,000 ML IV PRN (09:28)
[2021-03-04] MEDS: PANTOPRAZOLE 40 MG VIAL IV SCH ×2 (09:52→21:52)
[2021-03-04] MEDS: LACTULOSE 20 GM/30 ML UDCUP PO SCH ×2 (09:52→21:52)
[2021-03-04] MEDS: SODIUM CHLORIDE 0.9% 1,000 ML IV SCH (09:52)
[2021-03-04] MEDS: FUROSEMIDE 40 MG/4 ML VIAL IV SCH ×2 (09:58→17:34)
[2021-03-04] MEDS: LATANOPROST 0.005% OPH SOLN 2.5 ML BOTTLE BOTH EYES SCH (21:53)
[2021-03-05] MEDS: INSULIN LISPRO 100 UNIT/ML SUBCUT SCH ×4 (01:23→17:13)
[2021-03-05 04:39] LABS: Hematocrit 26.8 VOL% (35.7-47.0); Hemoglobin 8.4 GM/DL (12.0-16.0); Immature Granulocytes % 2.8 %; Immature Granulocytes Absolute 0.08 #; Lymphocytes # 0.2 10*3/uL (1.4-4.0); Lymphocytes % 8.3 % (21.3-54.2); Mean Corpuscular HGB Conc 31.3 GM/DL (32-36); Mean Corpuscular Volume 94.7 FL (87-102); Mean Platelet Volume 11.2 FL (9.6-12.0); Monocytes % 6.3 % (1.7-12.7); Neutrophils % 82.6 % (38.7-73.9); Red Blood Count 2.83 MC/CUMM (3.8-5.5); Red Cell Distribution Width 17.3 % (9.3-17.3); White Blood Count 2.9 T/CUMM (4-12)
[2021-03-05 04:42] LABS: Platelet Count 50 T/CUMM (130-400)
[2021-03-05 04:57] LABS: Albumin 2.6 G/DL (3.4-5.0); Bilirubin,Total 2.7 MG/DL (0.20-1.00); Calcium 10.6 MG/DL (8.5-10.1); Osmolality,Calculated 291.1 MOS/KG (273-304); Potassium 3.5 MMOL/L (3.5-5.1)
[2021-03-05 05:04] LABS: Anisocytosis 1+; Hypochromasia 1+; Lymphocytes 10 % (20-55); Microcytosis 1+; Nucleated Red Blood Cells 1 (0-5); Segmented Neutrophils 87 % (50-85); Total Cells Counted 100
[2021-03-05 05:05] LABS: Platelet Estimate Decreased; Tear Drop Cells Slight
[2021-03-05] MEDS: LACTATED RINGERS 1,000 ML IV SCH ×2 (05:58→11:33)
[2021-03-05] MEDS: SODIUM CHLORIDE 0.9% 1,000 ML IV SCH (08:36)
[2021-03-05] MEDS: FUROSEMIDE 40 MG/4 ML VIAL IV SCH ×2 (09:06→15:13)
[2021-03-05] MEDS: methylPREDNISolone SOD SUC 40 MG/1 ML VIAL IV SCH (10:20)
[2021-03-05] MEDS: PANTOPRAZOLE 40 MG VIAL IV SCH ×2 (10:22→21:50)
[2021-03-05] MEDS: POTASSIUM CHLORIDE RIDER 10 MEQ/100 ML PREMIX IV PRN ×3 (10:24→12:28)
[2021-03-05] MEDS: LACTULOSE 20 GM/30 ML UDCUP PO SCH ×2 (10:25→21:50)
[2021-03-05 14:59] LABS: Total Protein 7.4 G/DL (6.4-8.2)
[2021-03-05] MEDS: LATANOPROST 0.005% OPH SOLN 2.5 ML BOTTLE BOTH EYES SCH (21:51)
[2021-03-06] MEDS: INSULIN LISPRO 100 UNIT/ML SUBCUT SCH ×4 (01:12→18:46)
[2021-03-06 03:56] LABS: Hematocrit 27.8 VOL% (35.7-47.0); Hemoglobin 9.3 GM/DL (12.0-16.0); Immature Granulocytes % 1.3 %; Immature Granulocytes Absolute 0.04 #; Lymphocytes # 0.3 10*3/uL (1.4-4.0); Lymphocytes % 11.4 % (21.3-54.2); Mean Corpuscular HGB Conc 33.5 GM/DL (32-36); Mean Corpuscular Volume 90.3 FL (87-102); Mean Platelet Volume 10.7 FL (9.6-12.0); Neutrophils % 80.3 % (38.7-73.9); Red Blood Count 3.08 MC/CUMM (3.8-5.5); Red Cell Distribution Width 17.4 % (9.3-17.3)
[2021-03-06 04:00] LABS: Platelet Count 38 T/CUMM (130-400)
[2021-03-06 04:18] LABS: Albumin 2.5 G/DL (3.4-5.0); Bilirubin,Total 2.4 MG/DL (0.20-1.00); Calcium 10.2 MG/DL (8.5-10.1); Osmolality,Calculated 282.7 MOS/KG (273-304); Potassium 3.5 MMOL/L (3.5-5.1); Total Protein 6.7 G/DL (6.4-8.2)
[2021-03-06] MEDS: methylPREDNISolone SOD SUC 40 MG/1 ML VIAL IV SCH (09:30)
[2021-03-06] MEDS: LACTULOSE 20 GM/30 ML UDCUP PO SCH ×2 (09:30→21:10)
[2021-03-06] MEDS: PANTOPRAZOLE 40 MG VIAL IV SCH ×2 (09:31→21:09)
[2021-03-06] MEDS: FUROSEMIDE 40 MG/4 ML VIAL IV SCH ×2 (09:31→16:44)
[2021-03-06] MEDS ORDERED: DEXAMETHASONE 10 MG/1 ML VIAL IV ONE (12:30)
[2021-03-06] MEDS ORDERED: diphenhydrAMINE CAP 50 MG CAPSULE PO ONE (12:30)
[2021-03-06] MEDS ORDERED: IMMUNE GLOBULIN 10% 20 GM, IMMUNE GLOBULIN 10% 10 GM in PREMIX 1 EACH IV ONE (15:00)
[2021-03-06] MEDS: LATANOPROST 0.005% OPH SOLN 2.5 ML BOTTLE BOTH EYES SCH (21:11)
[2021-03-07] MEDS: INSULIN LISPRO 100 UNIT/ML SUBCUT SCH ×4 (00:52→17:58)
[2021-03-07 04:29] LABS: Hemoglobin 9.1 GM/DL (12.0-16.0); Immature Granulocytes % 0.8 %; Immature Granulocytes Absolute 0.03 #; Lymphocytes # 0.2 10*3/uL (1.4-4.0); Lymphocytes % 4.8 % (21.3-54.2); Mean Corpuscular HGB Conc 32.5 GM/DL (32-36); Mean Corpuscular Volume 91.5 FL (87-102); Mean Platelet Volume 12.3 FL (9.6-12.0); Monocytes % 4.8 % (1.7-12.7); Neutrophils % 89.6 % (38.7-73.9); Red Blood Count 3.06 MC/CUMM (3.8-5.5); Red Cell Distribution Width 16.9 % (9.3-17.3)
[2021-03-07 04:34] LABS: Platelet Count 48 T/CUMM (130-400)
[2021-03-07 04:54] LABS: Lymphocytes 5 % (20-55); Segmented Neutrophils 88 % (50-85); Total Cells Counted 100
[2021-03-07 04:55] LABS: Hypochromasia 1+; Microcytosis 1+; Platelet Estimate Decreased
[2021-03-07 05:11] LABS: Albumin 2.4 G/DL (3.4-5.0); Bilirubin,Total 2.3 MG/DL (0.20-1.00); Osmolality,Calculated 287.8 MOS/KG (273-304); Potassium 3.4 MMOL/L (3.5-5.1); Total Protein 7.2 G/DL (6.4-8.2)
[2021-03-07] MEDS ORDERED: ZOLEDRONIC ACID 4 MG/100 ML PREMIX IV ONE (08:06)
[2021-03-07 09:04] LABS: Free T4 (Free Thyroxine) 0.96 NG/DL (0.76-1.46)
[2021-03-07] MEDS: LACTULOSE 20 GM/30 ML UDCUP PO SCH ×2 (10:52→20:49)
[2021-03-07] MEDS: PANTOPRAZOLE 40 MG VIAL IV SCH ×2 (10:52→20:47)
[2021-03-07] MEDS: methylPREDNISolone SOD SUC 40 MG/1 ML VIAL IV SCH (10:53)
[2021-03-07] MEDS: LATANOPROST 0.005% OPH SOLN 2.5 ML BOTTLE BOTH EYES SCH (23:22)
[2021-03-08] MEDS: INSULIN LISPRO 100 UNIT/ML SUBCUT SCH ×4 (00:30→18:05)
[2021-03-08 05:36] LABS: Eosinophils % 0.5 % (0.00-10.9); Hematocrit 29.3 VOL% (35.7-47.0); Hemoglobin 9.7 GM/DL (12.0-16.0); Immature Granulocytes % 0.5 %; Immature Granulocytes Absolute 0.02 #; Lymphocytes # 0.5 10*3/uL (1.4-4.0); Lymphocytes % 11.6 % (21.3-54.2); Mean Corpuscular HGB Conc 33.1 GM/DL (32-36); Mean Corpuscular Volume 91.3 FL (87-102); Mean Platelet Volume 12.5 FL (9.6-12.0); Monocytes % 5.7 % (1.7-12.7); Neutrophils % 81.7 % (38.7-73.9); Red Blood Count 3.21 MC/CUMM (3.8-5.5); Red Cell Distribution Width 17.2 % (9.3-17.3); White Blood Count 3.9 T/CUMM (4-12)
[2021-03-08 05:46] LABS: Platelet Count 33 T/CUMM (130-400)
[2021-03-08 05:58] LABS: Hypochromasia 1+; Microcytosis 1+; Platelet Estimate Decreased
[2021-03-08 06:10] LABS: Albumin 2.3 G/DL (3.4-5.0); Bilirubin,Total 2.3 MG/DL (0.20-1.00); Calcium 9.6 MG/DL (8.5-10.1); Osmolality,Calculated 289.3 MOS/KG (273-304); Potassium 3.4 MMOL/L (3.5-5.1); Total Protein 6.8 G/DL (6.4-8.2)
[2021-03-08 07:22] LABS: Immunoglobulin A (Chem) 382 MG/DL (70-400); Immunoglobulin G (Chem) 2430 MG/DL (700-1600); Immunoglobulin M (Chem) 235 MG/DL (40-230); Total Protein (Chem) 7.4 G/DL (6.4-8.3)
[2021-03-08] MEDS ORDERED: IMMUNE GLOBULIN 10% 20 GM, IMMUNE GLOBULIN 10% 10 GM in PREMIX 1 EACH IV ONE (08:10)
[2021-03-08] MEDS: methylPREDNISolone SOD SUC 40 MG/1 ML VIAL IV SCH (08:52)
[2021-03-08] MEDS: PANTOPRAZOLE 40 MG VIAL IV SCH ×2 (08:54→20:09)
[2021-03-08 08:56] LABS: Albumin (SPE) 3.6 G/DL (3.2-5.3); Alpha 1 (SPE) 0.1 G/DL (0.1-0.4); Alpha 2 (SPE) 0.5 G/DL (0.4-1.0); Alpha 2 (SPE) Rel % 7.2 %; Beta (SPE) 0.5 G/DL (0.5-1.1); Beta (SPE) Rel % 7.3 %; Gamma (SPE) 2.6 G/DL (0.7-1.7); Gamma (SPE) Rel % 34.5 %
[2021-03-08] MEDS: LACTULOSE 20 GM/30 ML UDCUP PO SCH ×3 (08:57→20:09)
[2021-03-08 11:05] LABS: Immuno Free Light Chain Kappa 4.26 MG/DL (0.33-1.94); Immuno Free Light Chain Lambda 4.15 MG/DL (0.57-2.63); Immuno Free Light Chain Ratio 1.03 MG/DL (0.26-1.65)
[2021-03-08] MEDS: NYSTATIN POWDER 15 GM BOTTLE TOP SCH ×3 (11:30→20:09)
[2021-03-08 18:16] LABS: Bilirubin,Urine Negative (Negative); Blood, Urine Negative (Negative); Glucose,Urine (UA) Negative (Negative); Ketones,Urine Negative (Negative); Mucus,Urine Occasional /LPF (Occasional); Nitrite,Urine Negative (Negative); Protein,Urine Negative; RBC,Urine 1 /HPF (0-4); Urine Appearance CLEAR (Clear); Urine Color Amber (Yellow); Urine Specific Gravity 1.013 (1.001-1.035)
[2021-03-08] MEDS: LATANOPROST 0.005% OPH SOLN 2.5 ML BOTTLE BOTH EYES SCH (20:09)
[2021-03-09] MEDS: INSULIN LISPRO 100 UNIT/ML SUBCUT SCH ×3 (01:19→18:27)
[2021-03-09 06:06] LABS: Eosinophils % 0.7 % (0.00-10.9); Hemoglobin 9.3 GM/DL (12.0-16.0); Immature Granulocytes % 0.9 %; Immature Granulocytes Absolute 0.04 #; Lymphocytes # 0.5 10*3/uL (1.4-4.0); Lymphocytes % 12.3 % (21.3-54.2); Mean Corpuscular HGB Conc 32.1 GM/DL (32-36); Mean Corpuscular Volume 94.5 FL (87-102); Monocytes % 7.1 % (1.7-12.7); Red Blood Count 3.07 MC/CUMM (3.8-5.5); Red Cell Distribution Width 17.8 % (9.3-17.3); White Blood Count 4.2 T/CUMM (4-12)
[2021-03-09 06:57] LABS: Platelet Count 33 T/CUMM (130-400)
[2021-03-09 06:58] LABS: Hypochromasia 1+; Microcytosis 1+
[2021-03-09 06:59] LABS: Ovalocytes Slight; Platelet Estimate Decreased; Tear Drop Cells Slight
[2021-03-09 08:33] LABS: Albumin 2.2 G/DL (3.4-5.0); Bilirubin,Total 1.9 MG/DL (0.20-1.00); Calcium 9.2 MG/DL (8.5-10.1); Osmolality,Calculated 283.5 MOS/KG (273-304); Potassium 3.4 MMOL/L (3.5-5.1); Total Protein 7.1 G/DL (6.4-8.2)
[2021-03-09] MEDS: NYSTATIN POWDER 15 GM BOTTLE TOP SCH ×3 (09:39→21:01)
[2021-03-09] MEDS: PANTOPRAZOLE 40 MG VIAL IV SCH ×2 (09:39→21:01)
[2021-03-09] MEDS: LACTULOSE 20 GM/30 ML UDCUP PO SCH ×3 (09:39→21:00)
[2021-03-09] MEDS: methylPREDNISolone SOD SUC 40 MG/1 ML VIAL IV SCH (09:41)
[2021-03-09] MEDS: LATANOPROST 0.005% OPH SOLN 2.5 ML BOTTLE BOTH EYES SCH (21:01)
[2021-03-10] MEDS: INSULIN LISPRO 100 UNIT/ML SUBCUT SCH ×3 (01:06→11:59)
[2021-03-10 04:06] LABS: Eosinophils % 0.4 % (0.00-10.9); Hematocrit 28.2 VOL% (35.7-47.0); Hemoglobin 9.4 GM/DL (12.0-16.0); Immature Granulocytes % 0.7 %; Immature Granulocytes Absolute 0.04 #; Lymphocytes # 0.6 10*3/uL (1.4-4.0); Lymphocytes % 10.5 % (21.3-54.2); Mean Corpuscular HGB Conc 33.3 GM/DL (32-36); Mean Corpuscular Volume 92.2 FL (87-102); Monocytes % 6.9 % (1.7-12.7); Neutrophils % 81.5 % (38.7-73.9); Red Blood Count 3.06 MC/CUMM (3.8-5.5); Red Cell Distribution Width 18.3 % (9.3-17.3); White Blood Count 5.5 T/CUMM (4-12)
[2021-03-10 04:12] LABS: Platelet Count 29 T/CUMM (130-400)
[2021-03-10 04:24] LABS: Hypochromasia 1+; Microcytosis Slight; Platelet Estimate Decreased
[2021-03-10 04:38] LABS: Albumin 2.3 G/DL (3.4-5.0); Calcium 8.6 MG/DL (8.5-10.1); Osmolality,Calculated 287.4 MOS/KG (273-304); Potassium 3.3 MMOL/L (3.5-5.1); Total Protein 7.2 G/DL (6.4-8.2)
[2021-03-10] MEDS ORDERED: SODIUM CHLORIDE 0.9% 1,000 ML IV PRN (04:54)
[2021-03-10] MEDS: POTASSIUM CHLORIDE RIDER 10 MEQ/100 ML PREMIX IV PRN (05:45)
[2021-03-10] MEDS: PANTOPRAZOLE 40 MG VIAL IV SCH (08:36)
[2021-03-10] MEDS: LACTULOSE 20 GM/30 ML UDCUP PO SCH (08:36)
[2021-03-10] MEDS: methylPREDNISolone SOD SUC 40 MG/1 ML VIAL IV SCH (08:36)
[2021-03-10] MEDS: NYSTATIN POWDER 15 GM BOTTLE TOP SCH (08:37)
[2021-03-10 11:09] LABS: Total Volume 1950 mL
[2021-03-10 11:46] VITALS: BP 147/61
== END 2021-03-10 14:12 | disposition swing bed (61) | DRG 808 ==
LOC: EDUNIT# → EDBD → N.ED 11:19 → SUATTDRO 13:08 → N.EDINP 13:35 → N.ICU 14:11 → N.4E 03-05 17:48
PROVIDERS: ADMIT Family Medicine; ATTEND Internal Medicine

== ENCOUNTER 2021-11-12 17:27 | Observation (INO) ==
[2021-11-12 18:47] LABS: Basophils % 0.3 % (0.0-0.8); Hematocrit 33.7 VOL% (35.7-47.0); Hemoglobin 10.2 GM/DL (12.0-16.0); Immature Granulocytes % 0.5 %; Immature Granulocytes Absolute 0.02 #; Lymphocytes # 0.7 10*3/uL (1.4-4.0); Lymphocytes % 17.1 % (21.3-54.2); Mean Corpuscular HGB Conc 30.3 GM/DL (32-36); Mean Corpuscular Volume 100.9 FL (87-102); Monocytes % 4.6 % (1.7-12.7); Neutrophils % 76.5 % (38.7-73.9); Red Blood Count 3.34 MC/CUMM (3.8-5.5); Red Cell Distribution Width 18.6 % (9.3-17.3); White Blood Count 3.9 T/CUMM (4-12)
[2021-11-12 18:49] LABS: Platelet Count 28 T/CUMM (130-400)
[2021-11-12 18:53] LABS: Albumin 2.3 G/DL (3.4-5.0); Calcium 10.5 MG/DL (8.5-10.1); Osmolality,Calculated 291.5 MOS/KG (273-304); Potassium 5.2 MMOL/L (3.5-5.1)
[2021-11-12 19:06] LABS: Platelet Estimate Decreased
[2021-11-12 19:47] LABS: INR 1.2; Partial Thromboplastin Time 25.1 SECS (23.8-32.1)
[2021-11-12] MEDS ORDERED: cefTRIAXone 1,000 MG in SODIUM CHLORIDE 0.9% 100 ML IV STA (21:28)
[2021-11-12] MEDS ORDERED: DEXTROSE 10% 250 ML BAG IV PRN (21:33)
[2021-11-12] MEDS ORDERED: GLUCAGON 1 MG VIAL IM PRN (21:33)
[2021-11-12] MEDS ORDERED: SODIUM CHLORIDE 0.9% 500 ML IV STA (21:33)
[2021-11-12] MEDS ORDERED: ONDANSETRON 4 MG/2 ML VIAL IV PRN (21:33)
[2021-11-12] MEDS ORDERED: MORPHINE 4 MG/1 ML VIAL IV STA (21:43)
[2021-11-12] MEDS: HYDROmorphone 1 MG/1 ML SYRINGE IV PRN (21:45)
[2021-11-12] MEDS: allopurinoL 100 MG TABLET PO SCH (23:12)
[2021-11-12] MEDS: DEXTROSE 5% NACL 0.45% 1,000 ML IV SCH (23:22)
[2021-11-13] MEDS: RIFAXIMIN 550 MG TABLET PO SCH ×2 (09:17→22:17)
[2021-11-13] MEDS: buPROPion 100 MG TABLET PO SCH (09:17)
[2021-11-13] MEDS: amLODIPine 2.5 MG TABLET PO SCH (09:17)
[2021-11-13] MEDS: LACTULOSE 20 GM/30 ML UDCUP PO SCH (09:17)
[2021-11-13] MEDS: TORSEMIDE 20 MG TABLET PO SCH (09:17)
[2021-11-13] MEDS: GABAPENTIN 100 MG CAPSULE PO SCH ×3 (09:17→22:17)
[2021-11-13] MEDS: PANTOPRAZOLE 40 MG TABLET PO SCH (09:17)
[2021-11-13] MEDS: DESVENLAFAXINE 50 MG TABLET PO SCH (09:17)
[2021-11-13] MEDS: predniSONE 10 MG TABLET PO SCH (09:17)
[2021-11-13] MEDS: INSULIN REGULAR 100 UNIT/ML SUBCUT SCH ×4 (10:46→22:44)
[2021-11-13] MEDS: DEXTROSE 5% NACL 0.45% 1,000 ML IV SCH ×3 (10:54→22:44)
[2021-11-13] MEDS: HYDROmorphone 1 MG/1 ML SYRINGE IV PRN (17:20)
[2021-11-13] MEDS: allopurinoL 100 MG TABLET PO SCH (22:17)
[2021-11-13] MEDS: LATANOPROST 0.005% OPH SOLN 2.5 ML BOTTLE BOTH EYES SCH (22:44)
[2021-11-14 07:12] LABS: Basophils % 0.3 % (0.0-0.8); Hematocrit 37.2 VOL% (35.7-47.0); Hemoglobin 11.3 GM/DL (12.0-16.0); Immature Granulocytes % 0.5 %; Immature Granulocytes Absolute 0.02 #; Lymphocytes # 0.6 10*3/uL (1.4-4.0); Lymphocytes % 15.2 % (21.3-54.2); Mean Corpuscular HGB Conc 30.4 GM/DL (32-36); Mean Corpuscular Volume 99.7 FL (87-102); Monocytes % 5.9 % (1.7-12.7); Neutrophils % 77.1 % (38.7-73.9); Red Blood Count 3.73 MC/CUMM (3.8-5.5); Red Cell Distribution Width 17.8 % (9.3-17.3); White Blood Count 3.9 T/CUMM (4-12)
[2021-11-14 07:29] LABS: Platelet Count 28 T/CUMM (130-400)
[2021-11-14 07:34] LABS: Albumin 2.1 G/DL (3.4-5.0); Bilirubin,Total 0.9 MG/DL (0.20-1.00); Osmolality,Calculated 294.3 MOS/KG (273-304); Potassium 4.3 MMOL/L (3.5-5.1); Total Protein 6.7 G/DL (6.4-8.2)
[2021-11-14 07:43] LABS: Platelet Estimate Decreased
[2021-11-14 07:45] LABS: Anisocytosis 1+; Macrocytosis 1+
[2021-11-14] MEDS ORDERED: ALBUMIN 25% 12.5 GM/50 ML VIAL IV ONE ×2 (11:16→11:29)
[2021-11-14] MEDS: INSULIN REGULAR 100 UNIT/ML SUBCUT SCH ×4 (11:53→22:39)
[2021-11-14] MEDS: GABAPENTIN 100 MG CAPSULE PO SCH ×3 (11:55→22:39)
[2021-11-14] MEDS: HYDROmorphone 1 MG/1 ML SYRINGE IV PRN (16:41)
[2021-11-14] MEDS: LACTULOSE 20 GM/30 ML UDCUP PO SCH (16:57)
[2021-11-14] MEDS: amLODIPine 2.5 MG TABLET PO SCH (16:58)
[2021-11-14] MEDS: TORSEMIDE 20 MG TABLET PO SCH (16:58)
[2021-11-14] MEDS: buPROPion 100 MG TABLET PO SCH (16:59)
[2021-11-14] MEDS: PANTOPRAZOLE 40 MG TABLET PO SCH (16:59)
[2021-11-14] MEDS: predniSONE 10 MG TABLET PO SCH (16:59)
[2021-11-14] MEDS: DESVENLAFAXINE 50 MG TABLET PO SCH (16:59)
[2021-11-14] MEDS: RIFAXIMIN 550 MG TABLET PO SCH ×2 (17:00→22:39)
[2021-11-14] MEDS: DEXTROSE 5% NACL 0.45% 1,000 ML IV SCH ×3 (17:40→23:07)
[2021-11-14] MEDS: allopurinoL 100 MG TABLET PO SCH (22:39)
[2021-11-14] MEDS: LATANOPROST 0.005% OPH SOLN 2.5 ML BOTTLE BOTH EYES SCH (22:39)
[2021-11-15] MEDS: TORSEMIDE 20 MG TABLET PO SCH (08:17)
[2021-11-15] MEDS: LACTULOSE 20 GM/30 ML UDCUP PO SCH (08:17)
[2021-11-15] MEDS: INSULIN REGULAR 100 UNIT/ML SUBCUT SCH ×4 (08:17→20:35)
[2021-11-15] MEDS: GABAPENTIN 100 MG CAPSULE PO SCH ×3 (08:18→20:35)
[2021-11-15] MEDS: amLODIPine 2.5 MG TABLET PO SCH (08:19)
[2021-11-15] MEDS: PANTOPRAZOLE 40 MG TABLET PO SCH (08:19)
[2021-11-15] MEDS: predniSONE 10 MG TABLET PO SCH (08:19)
[2021-11-15] MEDS: DESVENLAFAXINE 50 MG TABLET PO SCH (08:20)
[2021-11-15] MEDS: buPROPion 100 MG TABLET PO SCH (08:20)
[2021-11-15] MEDS: RIFAXIMIN 550 MG TABLET PO SCH ×2 (08:20→20:35)
[2021-11-15] MEDS: DEXTROSE 5% NACL 0.45% 1,000 ML IV SCH (08:22)
[2021-11-15 08:23] LABS: Basophils % 0.3 % (0.0-0.8); Eosinophils # 0.1 10*3/uL (0.0-0.87); Hematocrit 34.9 VOL% (35.7-47.0); Immature Granulocytes % 0.7 %; Immature Granulocytes Absolute 0.04 #; Lymphocytes % 15.9 % (21.3-54.2); Mean Corpuscular HGB Conc 31.5 GM/DL (32-36); Mean Corpuscular Volume 96.7 FL (87-102); Monocytes % 6.8 % (1.7-12.7); Neutrophils % 75.3 % (38.7-73.9); Red Blood Count 3.61 MC/CUMM (3.8-5.5); Red Cell Distribution Width 17.4 % (9.3-17.3); White Blood Count 6.2 T/CUMM (4-12)
[2021-11-15 08:27] LABS: Platelet Count 34 T/CUMM (130-400)
[2021-11-15 08:40] LABS: Calcium 8.9 MG/DL (8.5-10.1); Osmolality,Calculated 288.7 MOS/KG (273-304); Potassium 3.6 MMOL/L (3.5-5.1)
[2021-11-15 08:52] LABS: Hypochromia Slight
[2021-11-15 08:53] LABS: Macrocytosis 1+; Platelet Estimate Decreased
[2021-11-15] MEDS: allopurinoL 100 MG TABLET PO SCH (20:34)
[2021-11-15] MEDS: LATANOPROST 0.005% OPH SOLN 2.5 ML BOTTLE BOTH EYES SCH (20:52)
[2021-11-16 08:22] LABS: Basophils % 0.2 % (0.0-0.8); Eosinophils # 0.1 10*3/uL (0.0-0.87); Eosinophils % 1.2 % (0.00-10.9); Hematocrit 35.2 VOL% (35.7-47.0); Hemoglobin 11.1 GM/DL (12.0-16.0); Immature Granulocytes % 0.7 %; Immature Granulocytes Absolute 0.03 #; Lymphocytes # 0.8 10*3/uL (1.4-4.0); Lymphocytes % 18.5 % (21.3-54.2); Mean Corpuscular HGB Conc 31.5 GM/DL (32-36); Mean Corpuscular Volume 96.2 FL (87-102); Monocytes % 6.1 % (1.7-12.7); Neutrophils % 73.3 % (38.7-73.9); Red Blood Count 3.66 MC/CUMM (3.8-5.5); Red Cell Distribution Width 17.2 % (9.3-17.3); White Blood Count 4.3 T/CUMM (4-12)
[2021-11-16 08:26] LABS: Platelet Count 31 T/CUMM (130-400)
[2021-11-16 08:39] LABS: Platelet Estimate Decreased
[2021-11-16 08:50] LABS: Osmolality,Calculated 285.8 MOS/KG (273-304); Potassium 3.8 MMOL/L (3.5-5.1)
[2021-11-16] MEDS: INSULIN REGULAR 100 UNIT/ML SUBCUT SCH ×2 (10:03→11:50)
[2021-11-16] MEDS: buPROPion 100 MG TABLET PO SCH (10:06)
[2021-11-16] MEDS: LACTULOSE 20 GM/30 ML UDCUP PO SCH (10:07)
[2021-11-16] MEDS: PANTOPRAZOLE 40 MG TABLET PO SCH (10:07)
[2021-11-16] MEDS: GABAPENTIN 100 MG CAPSULE PO SCH ×2 (10:07→14:26)
[2021-11-16] MEDS: DESVENLAFAXINE 50 MG TABLET PO SCH (10:08)
[2021-11-16] MEDS: predniSONE 10 MG TABLET PO SCH (10:08)
[2021-11-16] MEDS: amLODIPine 2.5 MG TABLET PO SCH (10:10)
[2021-11-16] MEDS: RIFAXIMIN 550 MG TABLET PO SCH (10:11)
[2021-11-16] MEDS: TORSEMIDE 20 MG TABLET PO SCH (10:11)
[2021-11-16 11:55] VITALS: BP 108/40
== END 2021-11-16 17:00 ==
LOC: EDBD → EDUNIT# → N.ED 17:27 → N.EDINP 17:27 → N.5E 11-13 01:19
PROVIDERS: ADMIT Internal Medicine; ATTEND Family Medicine